=== PATIENT | male | born 1945 | race African-American/Black ===

== ENCOUNTER 2018-06-30 23:38 | Inpatient (IN) | payer BC, MEDICAID ==
[~2018-06-30] VITALS: Ht 167.6 cm; Wt 76.7 kg
[2018-06-30] MEDS ORDERED: ONDANSETRON HCL 4MG/2ML INJ IV STA (23:43)
[2018-06-30] MEDS ORDERED: NITROGLYCERIN OINT 1GM/INCH UDPKT TD ONE (23:45)
[2018-07-01] VITALS (10 sets, daily range): BP systolic 133–159; BP diastolic 78–97
[2018-07-01 00:20] LABS: HEMATOCRIT. 37.2 % (42.0-52.0); HEMOGLOBIN. 12.2 g/dL (14.0-18.0); MEAN CORPUSCULAR HEMOGLOBIN 25.6 pg (28.0-32.0); MEAN CORPUSCULAR VOLUME 78.1 fL (80.0-94.0); PLATELET 181 x1000/uL (130-400); RED BLOOD CELL COUNT 4.77 mill/uL (4.7-6.1); RED CELL DISTRIBUTION WIDTH 15.5 % (11.6-14.6)
[2018-07-01 00:23] LABS: CHLORIDE 106 mEq/L (98-107)
[2018-07-01 00:40] LABS: BG BASE EXCESS -2.2 mmol/L (-2.0-2.0); BG BILEVEL POS AIRWAY PRESSURE 15/5; BG CARBOXYHEMOGLOBIN 0.7 % (0.5-1.5); BG DEOXYHEMOGLOBIN 1.5 % (0.0-5.0); BG FRACTION INSPIRED OXYGEN 50; BG HCO3 ACT 22.7 mmol/L (22.0-26.0); BG METHEMOGLOBIN 0.4 % (0.0-1.5); BG OXYGEN SATURATION 98.5 % (92.0-98.5); BG OXYHEMOGLOBIN 97.4 % (94.0-97.0); BG PCO2 39.1 mmHg (35.0-45.0); BG PH 7.381 (7.350-7.450); BG PO2 139.4 mmHg (75.0-100.0); BG SAMPLE SITE LEFT RADIAL; BG TOTAL HEMOGLOBIN 12.6 g/dL (12.0-18.0); BG VENT MODE MASK - BIPAP
[2018-07-01 00:53] LABS: PLATELET ESTIMATE NORMAL
[2018-07-01] MEDS ORDERED: AZITHROMYCIN 500 MG in DEXT 5% WATER 250 ML IV SCH (01:00)
[2018-07-01] MEDS ORDERED: CEFTRIAXONE 1 G PREMIX 50 ML IV SCH (01:00)
[2018-07-01] MEDS ORDERED: IOHEXOL-350 100 ML BOTTLE ONE (03:43)
[2018-07-01] MEDS ORDERED: LOVA10TA54 MT (06:25)
[2018-07-01] MEDS ORDERED: LANTUSUD SUBCUT (06:25)
[2018-07-01] MEDS ORDERED: WARF-53 MT (06:25)
[2018-07-01] MEDS ORDERED: VITA-137 PO (06:25)
[2018-07-01] MEDS ORDERED: CINN500C5 PO (06:25)
[2018-07-01] MEDS ORDERED: MAGN400C PO (06:25)
[2018-07-01] MEDS ORDERED: PENI250T2 MT (06:27)
[2018-07-01] MEDS ORDERED: DOXY150T MT (06:27)
[2018-07-01] MEDS ORDERED: CLOT14.2 TP (06:27)
[2018-07-01] MEDS ORDERED: VANCOMYCIN 1 G PREMIX 200 ML IV STA (07:06)
[2018-07-01] MEDS ORDERED: SODIUM CHLORIDE 0.45% 1,000 ML IV SCH (07:15)
[2018-07-01] MEDS ORDERED: DEXTROSE 50% WATER 50ML SYRINGE IV PRN (07:15)
[2018-07-01] MEDS: BLOOD SUGAR DIAGNOSTIC STRIP TEST SCH ×4 (07:59→21:11)
[2018-07-01] MEDS: INSULIN LISPRO 100 UNITS/ML SUBCUT SCH ×4 (07:59→21:31)
[2018-07-01] MEDS: PANTOPRAZOLE SODIUM 40 MG/VIAL IV SCH (08:47)
[2018-07-01] MEDS ORDERED: VANCOMYCIN 1500MG in DEXTROSE 5% WATER 250ML IV NR (09:00)
[2018-07-01 11:10] LABS: HEMOGLOBIN. 11.8 g/dL (14.0-18.0); MEAN CORPUSCULAR HEMOGLOBIN 25.1 pg (28.0-32.0); MEAN CORPUSCULAR VOLUME 78.7 fL (80.0-94.0); MEAN PLATELET VOLUME 10.5 fl (7.4-10.4); PLATELET 168 x1000/uL (130-400); RED CELL DISTRIBUTION WIDTH 15.6 % (11.6-14.6)
[2018-07-01 11:19] LABS: INR 1.8
[2018-07-01] MEDS: CEFEPIME 1,000 MG in DEXTROSE 5% WATER 50 ML IV SCH ×2 (11:21→22:15)
[2018-07-01 11:24] LABS: CHLORIDE 105 mEq/L (98-107)
[2018-07-01] MEDS ORDERED: ONDANSETRON HCL 4MG/2ML INJ IV PRN (12:45)
[2018-07-01] MEDS ORDERED: HYDROCODONE/ACETAMINOPHEN 5/325MG TABLET PO PRN (12:45)
[2018-07-01] MEDS ORDERED: DOCUSATE SODIUM 100MG CAPSULE PO PRN (12:45)
[2018-07-01] MEDS ORDERED: DIPHENHYDRAMINE 50MG/ML VIAL IV PRN (12:45)
[2018-07-01] MEDS ORDERED: AMLODIPINE 5MG TABLET PO SCH (13:00)
[2018-07-01] MEDS ORDERED: CLONIDINE 0.1MG TABLET PO PRN (13:00)
[2018-07-01 13:04] LABS: BG BASE EXCESS 0.4 mmol/L (-2.0-2.0); BG CARBOXYHEMOGLOBIN 0.8 % (0.5-1.5); BG DEOXYHEMOGLOBIN 5.5 % (0.0-5.0); BG HCO3 ACT 23.6 mmol/L (22.0-26.0); BG METHEMOGLOBIN 0.2 % (0.0-1.5); BG OXYGEN SATURATION 94.4 % (92.0-98.5); BG OXYHEMOGLOBIN 93.5 % (94.0-97.0); BG PCO2 33.5 mmHg (35.0-45.0); BG PH 7.465 (7.350-7.450); BG PO2 66.6 mmHg (75.0-100.0); BG SAMPLE SITE RIGHT RADIAL; BG TOTAL HEMOGLOBIN 12.6 g/dL (12.0-18.0); BG VENT MODE ROOM AIR
[2018-07-01 13:35] LABS: CLARITY URINE CLEAR (CLEAR); COLOR URINE YELLOW (YELLOW); KETONES URINE NEGATIVE (NEGATIVE); LEUKOCYTE ESTERASE URINE NEGATIVE (NEGATIVE); NITRITE URINE NEGATIVE (NEGATIVE); OCCULT BLOOD URINE NEGATIVE (NEGATIVE); PROTEIN URINE NEGATIVE (NEGATIVE); SPECIFIC GRAVITY URINE 1.022 (1.005-1.030); UROBILINOGEN URINE 0.2 E.U./dL (0.2-1.0)
[2018-07-01 14:18] LABS: PLATELET ESTIMATE NORMAL
[2018-07-01] MEDS ORDERED: METHYLPREDNISOLONE SOD SUCC 40 MG/ML VIAL IV SCH (17:00)
[2018-07-01] MEDS ORDERED: IPRATROPIUM/ALBUTEROL 0.5-3(2.5)MG/3ML NEB HHN SCH ×2 (17:00→20:00)
[2018-07-01] MEDS ORDERED: FUROSEMIDE 40MG/4ML VIAL IVP NR (17:30)
[2018-07-01] MEDS ORDERED: WARFARIN SODIUM 5MG TABLET PO NR (18:00)
[2018-07-01] MEDS: VANCOMYCIN 1 G PREMIX 200 ML IV SCH (21:11)
[2018-07-01] MEDS: ATORVASTATIN CALCIUM 10MG TABLET PO SCH (21:27)
[2018-07-01] MEDS: CARVEDILOL 6.25 MG TABLET PO SCH (21:27)
[2018-07-01] MEDS: LISINOPRIL 5MG TABLET PO SCH (21:59)
[2018-07-02] VITALS (10 sets, daily range): BP systolic 104–159; BP diastolic 56–94
[2018-07-02] MEDS: IPRATROPIUM/ALBUTEROL 0.5-3(2.5)MG/3ML NEB HHN PRN ×2 (00:11→04:23)
[2018-07-02 07:16] LABS: T4 FREE 1.32 ng/dL (0.76-1.46)
[2018-07-02 07:35] LABS: INR 1.8; PROTHROMBIN TIME 17.9 sec (9.1-11.1)
[2018-07-02] MEDS: BLOOD SUGAR DIAGNOSTIC STRIP TEST SCH ×4 (08:27→21:59)
[2018-07-02] MEDS: LISINOPRIL 5MG TABLET PO SCH (08:28)
[2018-07-02] MEDS: AZITHROMYCIN 500 MG TABLET PO SCH (08:28)
[2018-07-02] MEDS: CARVEDILOL 6.25 MG TABLET PO SCH ×2 (08:29→20:22)
[2018-07-02] MEDS: VANCOMYCIN 1 G PREMIX 200 ML IV SCH ×2 (08:29→20:20)
[2018-07-02] MEDS: PANTOPRAZOLE SODIUM 40 MG/VIAL IV SCH (08:29)
[2018-07-02] MEDS: INSULIN LISPRO 100 UNITS/ML SUBCUT SCH ×4 (08:34→21:59)
[2018-07-02] MEDS ORDERED: VITAMIN B COMPLEX PO SCH (09:00)
[2018-07-02] MEDS ORDERED: FUROSEMIDE 40MG/4ML VIAL IVP SCH (09:00)
[2018-07-02] MEDS: CEFEPIME 1,000 MG in DEXTROSE 5% WATER 50 ML IV SCH ×2 (11:57→23:25)
[2018-07-02] MEDS ORDERED: FUROSEMIDE 40MG/4ML VIAL IVP NR (13:00)
[2018-07-02 13:51] LABS: HEMATOCRIT 38.4 % (42.0-52.0); HEMOGLOBIN 12.1 g/dL (14.0-18.0); MEAN CORPUSCULAR VOLUME 79.2 fL (80.0-94.0); PLATELET 180 x1000/uL (130-400); RED BLOOD CELL COUNT 4.85 mill/uL (4.7-6.1); RED CELL DISTRIBUTION WIDTH 15.5 % (11.6-14.6)
[2018-07-02 14:27] LABS: CHLORIDE 106 mEq/L (98-107)
[2018-07-02 15:48] LABS: *AMPHETAMINES SCREEN URINE NEGATIVE (NEGATIVE); *BARBITURATES SCREEN URINE NEGATIVE (NEGATIVE); *BENZODIAZEPINES SCREEN URINE NEGATIVE (NEGATIVE); *COCAINE SCREEN URINE NEGATIVE (NEGATIVE); METHADONE URINE SCREEN NEGATIVE (NEGATIVE); OPIATES URINE SCREEN NEGATIVE (NEGATIVE)
[2018-07-02 15:49] LABS: CANNABINOID URINE SCREEN NEGATIVE (NEGATIVE); PHENCYCLIDINE URINE SCREEN NEGATIVE (NEGATIVE)
[2018-07-02] MEDS: FUROSEMIDE 40MG/4ML VIAL IVP SCH (18:00)
[2018-07-02] MEDS ORDERED: WARFARIN SODIUM 5MG TABLET PO SCH (18:00)
[2018-07-02] MEDS: ATORVASTATIN CALCIUM 10MG TABLET PO SCH (20:20)
[2018-07-03] VITALS (7 sets, daily range): BP systolic 134–152; BP diastolic 75–100
[2018-07-03] MEDS: BLOOD SUGAR DIAGNOSTIC STRIP TEST SCH ×4 (06:31→21:08)
[2018-07-03] MEDS: FUROSEMIDE 40MG/4ML VIAL IVP SCH ×2 (06:31→17:17)
[2018-07-03] MEDS: INSULIN LISPRO 100 UNITS/ML SUBCUT SCH ×4 (07:27→21:07)
[2018-07-03 07:34] LABS: HEMATOCRIT. 41.2 % (42.0-52.0); HEMOGLOBIN. 13.3 g/dL (14.0-18.0); MEAN CORPUSCULAR HEMOGLOBIN 25.1 pg (28.0-32.0); MEAN CORPUSCULAR VOLUME 77.7 fL (80.0-94.0); MEAN PLATELET VOLUME 10.5 fl (7.4-10.4); PLATELET 146 x1000/uL (130-400); RED CELL DISTRIBUTION WIDTH 15.7 % (11.6-14.6)
[2018-07-03 07:40] LABS: INR 2.1; PROTHROMBIN TIME 20.4 sec (9.1-11.1)
[2018-07-03] MEDS: AZITHROMYCIN 500 MG TABLET PO SCH (08:43)
[2018-07-03] MEDS: FAMOTIDINE 20MG TABLET PO SCH ×2 (08:43→21:08)
[2018-07-03] MEDS: LISINOPRIL 5MG TABLET PO SCH (08:44)
[2018-07-03] MEDS: CARVEDILOL 6.25 MG TABLET PO SCH ×2 (08:44→21:08)
[2018-07-03] MEDS: VANCOMYCIN 1 G PREMIX 200 ML IV SCH ×2 (08:44→21:09)
[2018-07-03 11:17] LABS: CHLORIDE 104 mEq/L (98-107)
[2018-07-03] MEDS: CEFEPIME 1,000 MG in DEXTROSE 5% WATER 50 ML IV SCH ×2 (11:27→23:17)
[2018-07-03] MEDS: GABAPENTIN 100MG CAPSULE PO SCH ×2 (12:19→21:08)
[2018-07-03 14:06] LABS: PLATELET ESTIMATE NORMAL
[2018-07-03 16:36] LABS: CLARITY URINE CLEAR (CLEAR); COLOR URINE YELLOW (YELLOW); KETONES URINE NEGATIVE (NEGATIVE); LEUKOCYTE ESTERASE URINE NEGATIVE (NEGATIVE); NITRITE URINE NEGATIVE (NEGATIVE); OCCULT BLOOD URINE NEGATIVE (NEGATIVE); PH URINE 5.5 (4.5-8.0); PROTEIN URINE NEGATIVE (NEGATIVE); SPECIFIC GRAVITY URINE 1.017 (1.005-1.030); UROBILINOGEN URINE 0.2 E.U./dL (0.2-1.0)
[2018-07-03] MEDS ORDERED: WARFARIN SODIUM 5MG TABLET PO NR (18:00)
[2018-07-03] MEDS: ATORVASTATIN CALCIUM 10MG TABLET PO SCH (21:08)
[2018-07-04] VITALS (8 sets, daily range): BP systolic 122–185; BP diastolic 71–93
[2018-07-04 07:25] LABS: INR 1.8; PROTHROMBIN TIME 18.1 sec (9.1-11.1)
[2018-07-04 07:36] LABS: CHLORIDE 103 mEq/L (98-107)
[2018-07-04 07:39] LABS: HEMATOCRIT. 40.8 % (42.0-52.0); HEMOGLOBIN. 13.3 g/dL (14.0-18.0); MEAN CORPUSCULAR HEMOGLOBIN 25.4 pg (28.0-32.0); RED BLOOD CELL COUNT 5.22 mill/uL (4.7-6.1); RED CELL DISTRIBUTION WIDTH 15.3 % (11.6-14.6)
[2018-07-04] MEDS: BLOOD SUGAR DIAGNOSTIC STRIP TEST SCH ×2 (07:42→11:36)
[2018-07-04] MEDS: INSULIN LISPRO 100 UNITS/ML SUBCUT SCH ×2 (08:00→12:24)
[2018-07-04 09:23] LABS: PLATELET 149 x1000/uL (130-400)
[2018-07-04] MEDS: VANCOMYCIN 1 G PREMIX 200 ML IV SCH (09:28)
[2018-07-04] MEDS: FUROSEMIDE 40MG/4ML VIAL IVP SCH (09:28)
[2018-07-04] MEDS: GABAPENTIN 100MG CAPSULE PO SCH (09:29)
[2018-07-04] MEDS: FAMOTIDINE 20MG TABLET PO SCH (09:29)
[2018-07-04] MEDS: AZITHROMYCIN 500 MG TABLET PO SCH (09:29)
[2018-07-04] MEDS: CARVEDILOL 6.25 MG TABLET PO SCH (09:29)
[2018-07-04] MEDS: LISINOPRIL 5MG TABLET PO SCH (09:29)
[2018-07-04 09:47] LABS: PLATELET ESTIMATE NORMAL
[2018-07-04] MEDS: CEFEPIME 1,000 MG in DEXTROSE 5% WATER 50 ML IV SCH (11:36)
[2018-07-04] MEDS ORDERED: AZIT500T5 MT (15:41)
[2018-07-04] MEDS ORDERED: WARFARIN SODIUM 3MG TABLET PO NR (18:00)
== END 2018-07-04 17:40 | disposition home or self-care (01) | DRG 871 ==
LOC: ER 23:38 → 5EST 07-01 02:35 → EDBEDREQTM 07-01 02:39 → EDBEDREQ 07-01 02:39 → EDBEDREQSVC 07-01 02:39 → EDBEDREQDT 07-01 02:39 → ENRESERV 07-01 04:20
PROVIDERS: ADMIT Internal Medicine; ATTEND Internal Medicine
PROC: 5A09357 Assistance with Respiratory Ventilation, Less than 24 Consecutive Hours, Continuous Positive Airway Pressure (ICD-10-PCS; principal; 2018-07-01)
DX: A41.9 Sepsis, unspecified organism (principal); I50.43 Acute on chronic combined systolic (congestive) and diastolic (congestive) heart failure; J96.90 Respiratory failure, unspecified, unspecified whether with hypoxia or hypercapnia; J18.1 Lobar pneumonia, unspecified organism; J44.1 Chronic obstructive pulmonary disease with (acute) exacerbation; D68.9 Coagulation defect, unspecified; J44.0 Chronic obstructive pulmonary disease with (acute) lower respiratory infection; J98.11 Atelectasis; I11.0 Hypertensive heart disease with heart failure; D64.9 Anemia, unspecified; E11.65 Type 2 diabetes mellitus with hyperglycemia; E66.9 Obesity, unspecified; Z86.73 Personal history of transient ischemic attack (TIA), and cerebral infarction without residual deficits; Z87.891 Personal history of nicotine dependence; Z79.4 Long term (current) use of insulin; Z79.01 Long term (current) use of anticoagulants; Z79.899 Other long term (current) drug therapy; Z87.81 Personal history of (healed) traumatic fracture
CPT/HCPCS: 36415; 36600; 71045; 71275; 73130; 74176; 80048; 80061; 80202; 80305; 82375; 82805; 82962; 83036; 83605; 83880; 84145; 84153; 84439; 84443; 84481; 84484; 85007; 85027; 85379; 87804; 93005; 93306; 93970; 94640; 94660; 96365; 96367; 96375; 97116; 97162; 97530; 99285; C1893; C9113; J0456; J0692; J0696; J1815; J1940; J2405; J2920; J3370; J7050; J7060; J7620; Q9967; G0103